=== PATIENT | male | born 1965 | race Two or more races ===

== ENCOUNTER 2017-05-22 20:24 | Emergency (ER) | payer BC ==
[~2017-05-22] VITALS: Ht 180.3 cm; Wt 77.1 kg
[~2017-05-22 20:24] MED LIST: ALBU0.084 NEB; AML5T PO; FLUT250M2 INH; HYDR-531 PO; KET30I PO; LISI-275 PO
[2017-05-22 20:31] VITALS: BP 149/85
== END 2017-05-23 01:42 | disposition left against medical advice (07) ==
LOC: ER 20:27
DX: M54.9 Dorsalgia, unspecified (principal); Z53.21 Procedure and treatment not carried out due to patient leaving prior to being seen by health care provider

== ENCOUNTER 2018-05-02 06:53 | Emergency (ER) | payer BC, MEDICARE ==
[~2018-05-02] VITALS: Ht 180.3 cm; Wt 90.7 kg
[2018-05-02 07:47] LABS: Basophils # (auto) 0 uL; Basophils % (auto) 0.3 % (0.0-2.0); Eosinophils # (auto) 0.2 uL; Eosinophils % (auto) 3.2 % (0.0-7.0); Hematocrit 47.4 % (41.0-53.0); Hemoglobin 15.7 g/dL (13.5-17.5); Lymphocytes # (auto) 2.5 uL; Lymphocytes % (auto) 32.3 % (10.0-50.0); Mean Corpuscular Hemoglobin 29.8 pg (28.0-32.0); Mean Corpuscular Hgb Conc. 33.2 g/dL (32.0-36.0); Mean Corpuscular Volume 89.9 fL (80.0-100.0); Monocytes # (auto) 0.5 uL; Neutrophils # (auto) 4.4 uL; Neutrophils % (auto) 57.2 % (37.0-80.0); Nucleated Red Blood Cells % 0.1 %; Platelet Count (auto) 381 10^3/uL (140-450); Red Blood Cells 5.27 10^6/uL (4.5-5.90); Red Cell Distribution Width 13.5 % (11.8-14.3); White Blood Cell 7.6 10^3/uL (4.4-10.8)
[2018-05-02 08:15] LABS: Alanine Aminotransferase 31 U/L (16-61); Albumin 3.8 g/dL (3.4-5.0); Alkaline Phosphatase 103 U/L (45-117); Anion Gap 3 (5-15); Aspartate Aminotransferase 26 U/L (15-37); BUN/Creatinine Ratio 11.6; Bilirubin, Total 0.8 mg/dL (0.2-1.0); Blood Urea Nitrogen 15 mg/dL (7-18); Calcium 8.8 mg/dL (8.5-10.1); Carbon Dioxide 29 mmol/L (21-32); Chloride 106 mmol/L (98-107); GFR African American 75 mL/min; GFR Non-African American 62 mL/min; Glucose 97 mg/dL (74-106); Magnesium 2.4 mg/dL (1.6-2.6); Potassium 3.4 mmol/L (3.5-5.1); Sodium 138 mmol/L (136-145); Total Protein 8.7 g/dL (6.4-8.2)
[2018-05-02 08:21] LABS: Urine Bacteria NONE SEEN /hpf (None Seen); Urine Blood Negative /uL (Negative); Urine Mucus FEW (None Seen); Urine Specific Gravity 1.025 (1.001-1.035); Urine WBC 4 /hpf (0 - 3)
[2018-05-02] MEDS ORDERED: SODIUM CHLORIDE 0.9% 1,000 ML IV ONE (08:36)
[2018-05-02] MEDS ORDERED: PROMETHAZINE HCL 25 MG/ML 1ML IV PRN (08:45)
[2018-05-02] MEDS ORDERED: KETOROLAC TROMETH 30 MG/ML 1ML VIAL IV ONE (08:45)
[2018-05-02] MEDS ORDERED: POTASSIUM EFFERVESENT TAB 25 MEQ PO ONE (09:45)
[2018-05-02 09:53] VITALS: BP 140/100
== END 2018-05-02 09:54 | disposition home or self-care (01) ==
LOC: ER 06:53
DX: K59.00 Constipation, unspecified (principal); E87.6 Hypokalemia; F17.210 Nicotine dependence, cigarettes, uncomplicated; J44.9 Chronic obstructive pulmonary disease, unspecified; I10 Essential (primary) hypertension; Z87.442 Personal history of urinary calculi
CPT/HCPCS: 36415; 74176; 80053; 81001; 83735; 84484; 85025; 93005; 96374; 99285; J1885; J7030

== ENCOUNTER 2018-11-26 21:01 | Emergency (ER) | payer BC ==
[~2018-11-26] VITALS: Ht 180.3 cm; Wt 90.7 kg
[2018-11-26 21:51] LABS: Basophils # (auto) 0 uL; Basophils % (auto) 0.5 % (0.0-2.0); Eosinophils # (auto) 0.4 uL; Eosinophils % (auto) 5.6 % (0.0-7.0); Hematocrit 45.2 % (41.0-53.0); Hemoglobin 15.2 g/dL (13.5-17.5); Lymphocytes # (auto) 2.5 uL; Lymphocytes % (auto) 35.4 % (10.0-50.0); Mean Corpuscular Hemoglobin 29.6 pg (28.0-32.0); Mean Corpuscular Hgb Conc. 33.5 g/dL (32.0-36.0); Mean Corpuscular Volume 88.3 fL (80.0-100.0); Monocytes # (auto) 0.7 uL; Monocytes % (auto) 10.5 % (0.0-12.0); Neutrophils # (auto) 3.3 uL; Nucleated Red Blood Cells % 0.1 %; Platelet Count (auto) 362 10^3/uL (140-450); Red Blood Cells 5.12 10^6/uL (4.5-5.90); Red Cell Distribution Width 13.4 % (11.8-14.3); White Blood Cell 6.9 10^3/uL (4.4-10.8)
[2018-11-26 22:08] LABS: Albumin 3.7 g/dL (3.4-5.0); BUN/Creatinine Ratio 14.8; Calcium 9.5 mg/dL (8.5-10.1); Magnesium 2.4 mg/dL (1.6-2.6); Potassium 3.5 mmol/L (3.5-5.1)
[2018-11-26 22:12] LABS: Bilirubin, Total 0.7 mg/dL (0.2-1.0); Total Protein 8.4 g/dL (6.4-8.2)
[2018-11-26 22:28] LABS: Urine Bacteria NONE SEEN /hpf (None Seen); Urine Blood 1+ /uL (Negative); Urine Specific Gravity 1.027 (1.001-1.035); Urine WBC 7 /hpf (0 - 3)
[2018-11-26 22:33] LABS: Alcohol, Urine < 3.0 mg/dL (0-5); Amphetamine Screen, Urine POSITIVE (NEGATIVE); Barbiturate Scree,Urine NEGATIVE (NEGATIVE); Benzodiazephine Screen, Urine NEGATIVE (NEGATIVE); Cannabinoid Screen, Urine NEGATIVE (NEGATIVE); Cocaine Screen, Urine NEGATIVE (NEGATIVE); Opiate Scree,Urine NEGATIVE (NEGATIVE); Phencyclidine Screen, Urine NEGATIVE (NEGATIVE)
[2018-11-26 22:35] VITALS: BP 167/94
== END 2018-11-26 22:48 | disposition short-term general hospital (02) ==
LOC: ER 21:01
DX: I63.9 Cerebral infarction, unspecified (principal); R07.9 Chest pain, unspecified; J44.9 Chronic obstructive pulmonary disease, unspecified; I10 Essential (primary) hypertension; F17.210 Nicotine dependence, cigarettes, uncomplicated; Z87.442 Personal history of urinary calculi
CPT/HCPCS: 36415; 70450; 71045; 80053; 80307; 81001; 82962; 83735; 84484; 85025; 93005; 94761; 99291

== ENCOUNTER 2019-08-18 09:38 | Emergency (ER) | payer BC | END 2019-08-18 10:57 | disposition left against medical advice (07) | LOC: ER 09:38 | DX: I10 Essential (primary) hypertension (principal); Z53.21 Procedure and treatment not carried out due to patient leaving prior to being seen by health care provider ==

== ENCOUNTER 2019-08-19 14:44 | Emergency (ER) | payer BC ==
[~2019-08-19] VITALS: Ht 172.7 cm; Wt 93.0 kg
[2019-08-19 15:06] VITALS: BP 161/90
[2019-08-19 16:21] LABS: Basophils # (auto) 0 uL; Basophils % (auto) 0.2 % (0.0-2.0); Eosinophils # (auto) 0.1 uL; Eosinophils % (auto) 1.5 % (0.0-7.0); Hematocrit 46.2 % (41.0-53.0); Hemoglobin 15.6 g/dL (13.5-17.5); Lymphocytes # (auto) 1.3 uL; Lymphocytes % (auto) 15.7 % (10.0-50.0); Mean Corpuscular Hemoglobin 30.5 pg (28.0-32.0); Mean Corpuscular Hgb Conc. 33.8 g/dL (32.0-36.0); Mean Corpuscular Volume 90.2 fL (80.0-100.0); Monocytes # (auto) 0.6 uL; Monocytes % (auto) 7.4 % (0.0-12.0); Neutrophils # (auto) 6.3 uL; Neutrophils % (auto) 75.2 % (37.0-80.0); Nucleated Red Blood Cells % 0.1 %; Platelet Count (auto) 282 10^3/uL (140-450); Red Blood Cells 5.12 10^6/uL (4.5-5.90); Red Cell Distribution Width 13.5 % (11.8-14.3); White Blood Cell 8.4 10^3/uL (4.4-10.8)
[2019-08-19 16:47] LABS: Albumin 3.2 g/dL (3.4-5.0); Calcium 8.3 mg/dL (8.5-10.1); Magnesium 1.8 mg/dL (1.6-2.6); Potassium 4.1 mmol/L (3.5-5.1)
[2019-08-19 16:50] LABS: BUN/Creatinine Ratio 9.4; Bilirubin, Total 0.5 mg/dL (0.2-1.0); Total Protein 7.8 g/dL (6.4-8.2)
== END 2019-08-19 23:33 | disposition left against medical advice (07) ==
LOC: ER 14:44 → EDBD 14:44 → ER 23:33
DX: J32.0 Chronic maxillary sinusitis (principal); J44.9 Chronic obstructive pulmonary disease, unspecified; I10 Essential (primary) hypertension; F17.210 Nicotine dependence, cigarettes, uncomplicated; Z87.442 Personal history of urinary calculi
CPT/HCPCS: 36415; 70450; 71045; 80053; 83605; 83735; 83880; 85025; 87040; 93005

== ENCOUNTER 2021-04-01 18:43 | Emergency (ER) | payer BC ==
[~2021-04-01] VITALS: Ht 180.3 cm; Wt 93.0 kg
[2021-04-01 18:49] VITALS: BP 139/74
== END 2021-04-01 22:24 | disposition left against medical advice (07) ==
LOC: ER 18:44
DX: S60.512A Abrasion of left hand, initial encounter (principal); S60.511A Abrasion of right hand, initial encounter; S80.812A Abrasion, left lower leg, initial encounter; S80.811A Abrasion, right lower leg, initial encounter; M54.5 Low back pain; R51.9 Headache, unspecified; M54.2 Cervicalgia; Z53.21 Procedure and treatment not carried out due to patient leaving prior to being seen by health care provider; V23.4XXA Motorcycle driver injured in collision with car, pick-up truck or van in traffic accident, initial encounter; Y93.89 Activity, other specified; Y92.410 Unspecified street and highway as the place of occurrence of the external cause; Y99.8 Other external cause status
CPT/HCPCS: 70450; 70486; 72125; 72131

== ENCOUNTER 2021-06-19 23:27 | Inpatient (IN) | payer BC ==
[~2021-06-19] VITALS: Ht 175.3 cm; Wt 80.8 kg
[2021-06-19] MEDS ORDERED: ASPirin 81 mg TAB PO ONE (23:45)
[2021-06-20] VITALS (21 sets, daily range): BP systolic 79–142; BP diastolic 43–104
[2021-06-20 00:18] LABS: Hemoglobin 11.5 g/dL (13.5-17.5); Nucleated Red Blood Cells % 0.1 %
[2021-06-20 00:19] LABS: Basophils # (auto) 0.1 10 ^3/uL (0-0.2); Basophils % (auto) 0.8 % (0.0-2.0); Eosinophils # (auto) 0.4 10 ^3/uL (0-0.8); Eosinophils % (auto) 4.7 % (0.0-7.0); Hematocrit 34.2 % (41.0-53.0); Lymphocytes # (auto) 2.1 10 ^3/uL (0.4-5.4); Lymphocytes % (auto) 22.7 % (10.0-50.0); Mean Corpuscular Hemoglobin 29.8 pg (28.0-32.0); Mean Corpuscular Hgb Conc. 33.6 g/dL (32.0-36.0); Mean Corpuscular Volume 88.9 fL (80.0-100.0); Monocytes # (auto) 0.7 10 ^3/uL (0-1.3); Monocytes % (auto) 7.1 % (0.0-12.0); Neutrophils # (auto) 6.1 10 ^3/uL (1.6-8.6); Neutrophils % (auto) 64.7 % (37.0-80.0); Red Blood Cells 3.85 10^6/uL (4.5-5.90); Red Cell Distribution Width 13.4 % (11.8-14.3); White Blood Cell 9.4 10^3/uL (4.4-10.8)
[2021-06-20] MEDS ORDERED: LIDOCAINE HCL 100 MG/5ML (2%) SYRG INJ IV ONE ×3 (00:30→01:50)
[2021-06-20] MEDS ORDERED: MAGNESIUM SULFATE 1GM/100ML 200 ML IV ONE (00:35)
[2021-06-20 00:37] LABS: Alanine Aminotransferase 95 U/L (16-61); Albumin 2.3 g/dL (3.4-5.0); Anion Gap 8 (5-15); BUN/Creatinine Ratio 17.6; Blood Urea Nitrogen 19 mg/dL (7-18); Calcium 8.5 mg/dL (8.5-10.1); Carbon Dioxide 24 mmol/L (21-32); Chloride 105 mmol/L (98-107); GFR African American 91 mL/min; GFR Non-African American 75 mL/min; Glucose 102 mg/dL (74-106); Magnesium 2.4 mg/dL (1.6-2.6); Potassium 4.7 mmol/L (3.5-5.1); Sodium 137 mmol/L (136-145)
[2021-06-20 00:40] LABS: Alkaline Phosphatase 110 U/L (45-117); Aspartate Aminotransferase 67 U/L (15-37); Bilirubin, Total 0.3 mg/dL (0.2-1.0); Total Protein 7.6 g/dL (6.4-8.2)
[2021-06-20 00:47] LABS: INR 1.02 (0.9-1.15); Partial Thromboplastin Time 28.4 sec (23.6-33.0)
[2021-06-20] MEDS ORDERED: AMIODARONE HCL (50 MG/ ML) 3 ML VIAL IV ONE (01:13)
[2021-06-20] MEDS ORDERED: ENOXAPARIN SOD 30 MG/0.3 ML SYRINGE IV ONE (01:15)
[2021-06-20] MEDS ORDERED: AMIODARONE HCL 150 MG in D5W 5% 100 ML IV ONE (01:15)
[2021-06-20] MEDS ORDERED: ENOXAPARIN SOD 60 MG/0.6 ML SYRINGE SC ONE (01:15)
[2021-06-20 01:18] LABS: Cholesterol 132 mg/dL (< 200); HDL Cholesterol 19 mg/dL (40-59); LDL Cholesterol 105 mg/dL (< 100); Triglycerides 88 mg/dL (< 150)
[2021-06-20] MEDS ORDERED: AMIODARONE 450mg/250ml AE 250 ML IV SCH ×2 (01:30→07:30)
[2021-06-20] MEDS ORDERED: LIDOCAINE 2%HCL (LOCAL ANESTH.) INJ 20ML MDV ONE (01:48)
[2021-06-20] MEDS ORDERED: IOHEXOL 350 MG/ML 100ML IJ ONE ×2 (01:48→02:24)
[2021-06-20] MEDS ORDERED: ANGIOMAX 250 MG VIAL IV ONE (01:50)
[2021-06-20] MEDS ORDERED: MIDAZOLAM HCL 2MG/2ML 2ml VIAL (1mg/ml) ONE (01:51)
[2021-06-20] MEDS ORDERED: SODIUM CHL 0.9% 50 ML ONE (01:51)
[2021-06-20] MEDS ORDERED: fentaNYL CITRATE 100 MCG/2 ML VL ONE (01:51)
[2021-06-20] MEDS ORDERED: TICAGRELOR 90 MG TAB ONE (02:56)
[2021-06-20] MEDS ORDERED: ASPirin 325 MG TAB ONE (03:04)
[2021-06-20] MEDS ORDERED: MORPHINE SULFATE INJECTION 2 MG/ML SYRG IV PRN ×3 (03:45→04:15)
[2021-06-20] MEDS ORDERED: NITROGLYCERIN 0.4 MG SL TAB SL PRN ×3 (03:45→04:15)
[2021-06-20] MEDS ORDERED: ONDANSETRON HCL 4 MG/2 ML VIAL IV PRN (04:00)
[2021-06-20] MEDS ORDERED: D5W/ SOD CHL 0.9%/KCL 20MEQ 1,000 ML IV ONE (04:00)
[2021-06-20] MEDS ORDERED: D5W/ SOD CHL 0.9%/KCL 20MEQ 0 ML IV ONE (05:11)
[2021-06-20 05:13] LABS: Eosinophils # (auto) 0.3 10 ^3/uL (0-0.8); Hemoglobin 11.9 g/dL (13.5-17.5); Lymphocytes # (auto) 1.6 10 ^3/uL (0.4-5.4); Monocytes # (auto) 0.3 10 ^3/uL (0-1.3); Neutrophils # (auto) 4.6 10 ^3/uL (1.6-8.6); White Blood Cell 6.8 10^3/uL (4.4-10.8)
[2021-06-20 05:15] LABS: Basophils # (auto) 0.1 10 ^3/uL (0-0.2); Basophils % (auto) 0.9 % (0.0-2.0); Hematocrit 35.7 % (41.0-53.0); Lymphocytes % (auto) 23.5 % (10.0-50.0); Mean Corpuscular Hemoglobin 29.4 pg (28.0-32.0); Mean Corpuscular Hgb Conc. 33.2 g/dL (32.0-36.0); Mean Corpuscular Volume 88.5 fL (80.0-100.0); Monocytes % (auto) 4.3 % (0.0-12.0); Neutrophils % (auto) 67.3 % (37.0-80.0); Nucleated Red Blood Cells % 0.2 %; Red Blood Cells 4.04 10^6/uL (4.5-5.90); Red Cell Distribution Width 13.7 % (11.8-14.3)
[2021-06-20] MEDS ORDERED: SODIUM CHLORIDE 0.9% 500 ML IV ONE (05:15)
[2021-06-20 05:31] LABS: Albumin 1.9 g/dL (3.4-5.0); BUN/Creatinine Ratio 17.3; Potassium 4.9 mmol/L (3.5-5.1)
[2021-06-20 05:33] LABS: Bilirubin, Total 0.5 mg/dL (0.2-1.0); Total Protein 6.8 g/dL (6.4-8.2)
[2021-06-20] MEDS ORDERED: ONDANSETRON HCL 4 MG/2 ML VIAL ONE (08:06)
[2021-06-20] MEDS ORDERED: SODIUM CHLORIDE 0.9% 1,000 ML IV SCH (09:45)
[2021-06-20] MEDS ORDERED: CARVEDILOL 3.125 MG TAB PO SCH (10:00)
[2021-06-20] MEDS: SPIRONOLACTONE 25 MG TAB PO SCH (10:00)
[2021-06-20] MEDS: ATORVASTATIN 20 MG TAB PO SCH (10:03)
[2021-06-20] MEDS: FAMOTIDINE 20 MG TAB PO SCH (10:03)
[2021-06-20] MEDS: ASPirin-EC 81 mg tab PO SCH (10:03)
[2021-06-20] MEDS: TICAGRELOR 90 MG TAB PO SCH ×2 (10:03→21:58)
[2021-06-20 13:33] LABS: Alcohol, Urine < 3.0 mg/dL (0-10); Amphetamine Screen, Urine POSITIVE (NEGATIVE); Barbiturate Scree,Urine NEGATIVE (NEGATIVE); Benzodiazephine Screen, Urine NEGATIVE (NEGATIVE); Cannabinoid Screen, Urine NEGATIVE (NEGATIVE); Cocaine Screen, Urine NEGATIVE (NEGATIVE); Phencyclidine Screen, Urine NEGATIVE (NEGATIVE)
[2021-06-20 13:41] LABS: Opiate Scree,Urine NEGATIVE (NEGATIVE)
[2021-06-20] MEDS: HYDROmorphone HCL 2 MG/ML VL IV PRN ×2 (16:49→21:05)
[2021-06-20] MEDS: CARVEDILOL 3.125 MG TAB PO SCH (21:58)
[2021-06-20] MEDS: MUPIROCIN 2% OINT 15gm or 22gm EACHNOSTRI SCH (21:58)
[2021-06-20] MEDS ORDERED: ACETAMINOPHEN 325 MG TAB PO PRN (22:15)
[2021-06-21] VITALS (32 sets, daily range): BP systolic 83–150; BP diastolic 47–72
[2021-06-21] MEDS: HYDROmorphone HCL 2 MG/ML VL IV PRN ×3 (01:08→10:50)
[2021-06-21 05:06] LABS: Basophils # (auto) 0 10 ^3/uL (0-0.2); Basophils % (auto) 0.3 % (0.0-2.0); Eosinophils # (auto) 0.3 10 ^3/uL (0-0.8); Monocytes # (auto) 0.6 10 ^3/uL (0-1.3)
[2021-06-21 05:09] LABS: Eosinophils % (auto) 2.1 % (0.0-7.0); Hematocrit 35.8 % (41.0-53.0); Hemoglobin 11.8 g/dL (13.5-17.5); Lymphocytes # (auto) 1.3 10 ^3/uL (0.4-5.4); Lymphocytes % (auto) 9.9 % (10.0-50.0); Mean Corpuscular Hemoglobin 29.2 pg (28.0-32.0); Mean Corpuscular Hgb Conc. 32.9 g/dL (32.0-36.0); Mean Corpuscular Volume 88.9 fL (80.0-100.0); Neutrophils # (auto) 10.5 10 ^3/uL (1.6-8.6); Neutrophils % (auto) 82.7 % (37.0-80.0); Red Blood Cells 4.03 10^6/uL (4.5-5.90); Red Cell Distribution Width 13.5 % (11.8-14.3); White Blood Cell 12.8 10^3/uL (4.4-10.8)
[2021-06-21 05:31] LABS: Potassium 4.5 mmol/L (3.5-5.1)
[2021-06-21 05:35] LABS: BUN/Creatinine Ratio 16.5; Calcium 8.8 mg/dL (8.5-10.1)
[2021-06-21] MEDS: MUPIROCIN 2% OINT 15gm or 22gm EACHNOSTRI SCH ×2 (10:49→22:16)
[2021-06-21] MEDS: TICAGRELOR 90 MG TAB PO SCH ×2 (10:53→22:16)
[2021-06-21] MEDS: FAMOTIDINE 20 MG TAB PO SCH (10:53)
[2021-06-21] MEDS: ATORVASTATIN 20 MG TAB PO SCH (10:53)
[2021-06-21] MEDS: ASPirin-EC 81 mg tab PO SCH (10:53)
[2021-06-21] MEDS: CARVEDILOL 3.125 MG TAB PO SCH ×2 (12:11→21:16)
[2021-06-21] MEDS ORDERED: AMOXICILLIN/CLAVUL 875 MG TAB PO ONE (13:45)
[2021-06-21] MEDS: SPIRONOLACTONE 25 MG TAB PO SCH (14:13)
[2021-06-21] MEDS: HYDROcodone-ACET 5/325MG TAB PO PRN ×2 (14:14→22:16)
[2021-06-21] MEDS ORDERED: LIDOCAINE 2% (LOCAL ANESTH.) PF 5ml SDV ONE (14:48)
[2021-06-21] MEDS: AMOXICILLIN/CLAVUL 875 MG TAB PO SCH (22:00)
[2021-06-22] VITALS (40 sets, daily range): BP systolic 81–117; BP diastolic 30–73
[2021-06-22 03:53] LABS: Basophils # (auto) 0 10 ^3/uL (0-0.2); Hemoglobin 12.2 g/dL (13.5-17.5); Lymphocytes # (auto) 1.3 10 ^3/uL (0.4-5.4); Neutrophils # (auto) 10.1 10 ^3/uL (1.6-8.6); White Blood Cell 12.3 10^3/uL (4.4-10.8)
[2021-06-22 03:55] LABS: Basophils % (auto) 0.2 % (0.0-2.0); Eosinophils # (auto) 0.3 10 ^3/uL (0-0.8); Eosinophils % (auto) 2.8 % (0.0-7.0); Hematocrit 36.5 % (41.0-53.0); Lymphocytes % (auto) 10.6 % (10.0-50.0); Mean Corpuscular Hemoglobin 29.7 pg (28.0-32.0); Mean Corpuscular Hgb Conc. 33.5 g/dL (32.0-36.0); Mean Corpuscular Volume 88.5 fL (80.0-100.0); Monocytes # (auto) 0.5 10 ^3/uL (0-1.3); Monocytes % (auto) 4.2 % (0.0-12.0); Neutrophils % (auto) 82.2 % (37.0-80.0); Red Blood Cells 4.12 10^6/uL (4.5-5.90); Red Cell Distribution Width 13.4 % (11.8-14.3)
[2021-06-22 04:10] LABS: Albumin 2.1 g/dL (3.4-5.0); Calcium 8.7 mg/dL (8.5-10.1); Magnesium 2.2 mg/dL (1.6-2.6); Potassium 4.3 mmol/L (3.5-5.1)
[2021-06-22 04:12] LABS: BUN/Creatinine Ratio 12.8
[2021-06-22 04:17] LABS: Bilirubin, Total 0.8 mg/dL (0.2-1.0); Total Protein 8.3 g/dL (6.4-8.2)
[2021-06-22] MEDS: SPIRONOLACTONE 25 MG TAB PO SCH (10:00)
[2021-06-22] MEDS: CARVEDILOL 3.125 MG TAB PO SCH ×2 (10:00→22:00)
[2021-06-22] MEDS: ASPirin-EC 81 mg tab PO SCH (10:59)
[2021-06-22] MEDS: ATORVASTATIN 20 MG TAB PO SCH (11:00)
[2021-06-22] MEDS: FAMOTIDINE 20 MG TAB PO SCH (11:00)
[2021-06-22] MEDS: AMOXICILLIN/CLAVUL 875 MG TAB PO SCH ×2 (11:00→23:24)
[2021-06-22] MEDS: MUPIROCIN 2% OINT 15gm or 22gm EACHNOSTRI SCH ×2 (11:01→22:00)
[2021-06-22] MEDS: TICAGRELOR 90 MG TAB PO SCH ×2 (11:01→23:25)
[2021-06-23 04:57] VITALS: BP 99/49
[2021-06-23 05:33] LABS: Hemoglobin 12.3 g/dL (13.5-17.5); Monocytes # (auto) 0.6 10 ^3/uL (0-1.3)
[2021-06-23 05:35] LABS: Basophils # (auto) 0 10 ^3/uL (0-0.2); Basophils % (auto) 0.5 % (0.0-2.0); Eosinophils # (auto) 0.3 10 ^3/uL (0-0.8); Eosinophils % (auto) 3.7 % (0.0-7.0); Hematocrit 37.2 % (41.0-53.0); Lymphocytes # (auto) 1.5 10 ^3/uL (0.4-5.4); Lymphocytes % (auto) 15.6 % (10.0-50.0); Mean Corpuscular Hemoglobin 29.5 pg (28.0-32.0); Mean Corpuscular Hgb Conc. 33.1 g/dL (32.0-36.0); Mean Corpuscular Volume 89.1 fL (80.0-100.0); Monocytes % (auto) 5.9 % (0.0-12.0); Neutrophils % (auto) 74.3 % (37.0-80.0); Nucleated Red Blood Cells % 0.1 %; Red Blood Cells 4.17 10^6/uL (4.5-5.90); Red Cell Distribution Width 13.4 % (11.8-14.3); White Blood Cell 9.4 10^3/uL (4.4-10.8)
[2021-06-23 09:00] VITALS: BP 108/74
[2021-06-23] MEDS: CARVEDILOL 3.125 MG TAB PO SCH (10:00)
[2021-06-23] MEDS: SPIRONOLACTONE 25 MG TAB PO SCH (10:00)
[2021-06-23] MEDS: ATORVASTATIN 20 MG TAB PO SCH (10:49)
[2021-06-23] MEDS: ASPirin-EC 81 mg tab PO SCH (10:49)
[2021-06-23] MEDS: FAMOTIDINE 20 MG TAB PO SCH (10:49)
[2021-06-23] MEDS: MUPIROCIN 2% OINT 15gm or 22gm EACHNOSTRI SCH (10:50)
[2021-06-23] MEDS ORDERED: CLOP75TA28 PO (11:21)
[2021-06-23] MEDS ORDERED: CAR3125T PO (11:21)
[2021-06-23] MEDS ORDERED: ATO40T PO (11:21)
[2021-06-23] MEDS ORDERED: AMOX-277 PO (11:21)
[2021-06-23] MEDS ORDERED: ASPI-378 PO (11:21)
[2021-06-23] MEDS: TICAGRELOR 90 MG TAB PO SCH (11:31)
[2021-06-23] MEDS: AMOXICILLIN/CLAVUL 875 MG TAB PO SCH (11:31)
[2021-06-23 12:19] VITALS: BP 108/74
[2021-06-23 13:00] VITALS: BP 97/61
== END 2021-06-23 13:44 | disposition home or self-care (01) | DRG 270 ==
LOC: EDUNIT# 23:27 → ER 23:27 → EDBD 23:27 → ER 06-20 02:04 → ICU WEST 06-20 02:04 → TELE-CENTR 06-22 14:00
PROVIDERS: ADMIT Internal Medicine Cardiovascular Disease; ATTEND Internal Medicine
PROC: 027237Z Dilation of Coronary Artery, Three Arteries with Four or More Drug-eluting Intraluminal Devices, Percutaneous Approach (ICD-10-PCS; principal; 2021-06-20)
PROC: 5A02210 Assistance with Cardiac Output using Balloon Pump, Continuous (ICD-10-PCS; 2021-06-20)
PROC: B211YZZ Fluoroscopy of Multiple Coronary Arteries using Other Contrast (ICD-10-PCS; 2021-06-20)
PROC: 4A023N7 Measurement of Cardiac Sampling and Pressure, Left Heart, Percutaneous Approach (ICD-10-PCS; 2021-06-20)
DX: I21.02 ST elevation (STEMI) myocardial infarction involving left anterior descending coronary artery (principal); I50.23 Acute on chronic systolic (congestive) heart failure; I47.2 Ventricular tachycardia; R65.10 Systemic inflammatory response syndrome (SIRS) of non-infectious origin without acute organ dysfunction; I25.10 Atherosclerotic heart disease of native coronary artery without angina pectoris; E78.5 Hyperlipidemia, unspecified; F15.10 Other stimulant abuse, uncomplicated; F17.210 Nicotine dependence, cigarettes, uncomplicated; G89.4 Chronic pain syndrome; I11.0 Hypertensive heart disease with heart failure; J44.9 Chronic obstructive pulmonary disease, unspecified; R73.03 Prediabetes; Z20.822 Contact with and (suspected) exposure to COVID-19; R42 Dizziness and giddiness; Z82.3 Family history of stroke; Z87.442 Personal history of urinary calculi; Z95.5 Presence of coronary angioplasty implant and graft
CPT/HCPCS: 36415; 71045; 80048; 80053; 80061; 80307; 83036; 83735; 83880; 84484; 85025; 85610; 85730; 87081; 87426; 87880; 92928; 93005; 93306; 93458; 96365; 96366; 96368; 96372; 96375; 99152; 99153; 99291; C1874; G0378; J2001; J2250; J2405; J7060

== ENCOUNTER 2021-06-25 21:10 | Emergency (ER) | payer BC ==
[~2021-06-25] VITALS: Ht 180.3 cm; Wt 90.7 kg
[~2021-06-25 21:10] MED LIST changes: -AML5T PO; +AMOX-277 PO; +ASPI-378 PO; +ATO40T PO; +CAR3125T PO; +CLOP75TA28 PO
[2021-06-25] MEDS ORDERED: DOPamine 1600mCg/ml 400MG/250ml NSorD5 KIT/BAG IV ONE (21:18)
[2021-06-25] MEDS ORDERED: EPINEPHrine HCL 1 MG/10 ML SYRG IV ONE (21:18)
[2021-06-25] MEDS ORDERED: LIDOCAINE HCL 100 MG/5ML (2%) SYRG INJ IV ONE (21:18)
[2021-06-25] MEDS ORDERED: ASPirin 325 MG TAB PO ONE (21:45)
[2021-06-25] MEDS ORDERED: ONDANSETRON HCL 4 MG/2 ML VIAL IV ONE (21:45)
[2021-06-25] MEDS ORDERED: MORPHINE SULFATE 4 MG/ML SYR/VIAL IV ONE (21:45)
[2021-06-25] MEDS ORDERED: LORazepam 2MG/ML-1ML VIAL IV ONE (22:00)
[2021-06-25] MEDS ORDERED: SODIUM CHLORIDE 0.9% 500 ML IV ONE (22:00)
[2021-06-25] MEDS ORDERED: ENOXAPARIN SOD 100 MG/1 ML SYRINGE SC ONE (22:00)
[2021-06-25 22:06] LABS: Basophils # (auto) 0.1 10 ^3/uL (0-0.2); Eosinophils # (auto) 0.4 10 ^3/uL (0-0.8); Neutrophils # (auto) 5.2 10 ^3/uL (1.6-8.6); Nucleated Red Blood Cells % 0.1 %; White Blood Cell 8.5 10^3/uL (4.4-10.8)
[2021-06-25 22:08] LABS: Basophils % (auto) 0.8 % (0.0-2.0); Hematocrit 38.6 % (41.0-53.0); Hemoglobin 12.7 g/dL (13.5-17.5); Lymphocytes # (auto) 2.1 10 ^3/uL (0.4-5.4); Lymphocytes % (auto) 24.3 % (10.0-50.0); Mean Corpuscular Hemoglobin 29.1 pg (28.0-32.0); Mean Corpuscular Hgb Conc. 32.8 g/dL (32.0-36.0); Mean Corpuscular Volume 88.7 fL (80.0-100.0); Monocytes # (auto) 0.7 10 ^3/uL (0-1.3); Monocytes % (auto) 8.3 % (0.0-12.0); Neutrophils % (auto) 61.6 % (37.0-80.0); Red Blood Cells 4.36 10^6/uL (4.5-5.90); Red Cell Distribution Width 13.5 % (11.8-14.3)
[2021-06-25] MEDS ORDERED: KETAMINE HCL 10 ML ONE (22:19)
[2021-06-25] MEDS ORDERED: MIDAZOLAM HCL 5 MG/ML-1ML VIAL ONE (22:20)
[2021-06-25 22:27] LABS: Albumin 2.4 g/dL (3.4-5.0); Calcium 8.8 mg/dL (8.5-10.1); Potassium 4.4 mmol/L (3.5-5.1)
[2021-06-25 22:30] VITALS: BP 58/39
[2021-06-25] MEDS ORDERED: EPTIFIBATIDE INJ (2MG/ML) 10ML VIAL IV ONE (22:30)
[2021-06-25] MEDS ORDERED: KETAMINE 50mg/ML 10ml Vial (500mg/10ml) IV ONE (22:30)
[2021-06-25] MEDS ORDERED: EPTIFIBATIDE DRIP(0.75MG/ML) 100 ML IV ONE (22:30)
[2021-06-25] MEDS ORDERED: MIDAZOLAM HCL 5 MG/ML-1ML VIAL IV ONE (22:30)
[2021-06-25 22:31] LABS: BUN/Creatinine Ratio 17.2; Bilirubin, Total 0.2 mg/dL (0.2-1.0); Total Protein 8.8 g/dL (6.4-8.2)
[2021-06-25] MEDS ORDERED: NOREPINEPHRINE 8 MG/250ML KIT 250 ML IV ONE (22:32)
[2021-06-25] MEDS ORDERED: fentaNYL Drip 2500mCg/250mlNS 250 ML IV ONE (22:36)
[2021-06-25 22:43] LABS: INR 1.02 (0.9-1.15); Partial Thromboplastin Time 28.5 sec (23.6-33.0)
[2021-06-25] MEDS ORDERED: NOREPINEPHRINE 8 MG/250ML KIT 250 ML IV SCH (22:45)
[2021-06-25] MEDS ORDERED: DOPamine 1600MCG/ML D5W 250 ML IV SCH (22:45)
[2021-06-25] MEDS ORDERED: EPINEPHrine HCL 1 MG/10 ML SYRG ONE (22:58)
== END 2021-06-25 23:54 ==
LOC: ER 21:17
DX: I21.9 Acute myocardial infarction, unspecified (principal); J44.9 Chronic obstructive pulmonary disease, unspecified; I10 Essential (primary) hypertension; F17.210 Nicotine dependence, cigarettes, uncomplicated; Z79.82 Long term (current) use of aspirin; Z79.2 Long term (current) use of antibiotics; Z79.899 Other long term (current) drug therapy
CPT/HCPCS: 31500; 36415; 71045; 80053; 83735; 83880; 84443; 84484; 85025; 85610; 85730; 86850; 86900; 86901; 96361; 96372; 96374; 96375; 99152; 99153; 99291; J0171; J1265; J1650; J2060; J2250; J2270; J2405; J7030; 93005